=== PATIENT | male | born 1935 | race Caucasian/White ===

== ENCOUNTER 2017-04-03 17:18 | Inpatient (IN) | payer MEDICARE, BC, OTHER ==
[2017-04-03] MEDS ORDERED: Ziprasidone 20 MG VIAL ONE (18:11)
[2017-04-03] MEDS ORDERED: Sterile Water 10 ML ONE (18:13)
[2017-04-03 19:23] LABS: #Eosinphils 0.1 thou/uL (0.0-0.7); #Lymphocytes 2.3 thou/uL (1.20-3.40); #Monocytes 0.8 thou/uL (0.11-0.59); #Neutrophils 5.6 thou/uL (1.40-6.50); %Basophils 0.3 % (0.0-1.0); %Eosinophils 1.6 % (0.0-10.0); %Lymphocytes 25.7 % (21.0-51.0); %Monocytes 9.3 % (0.0-10.0); %Neutrophils 63.1 % (42.0-75.0); Hemoglobin 12.4 g/dL (14.0-18.0); Mean Corpuscular HGB CONC 32.7 g/dL (32.0-36.0); Mean Platelet Volume 7.3 fL (7.4-10.4); Platelet Count 162 thou/uL (130-400); RBC Distribution Width 13.2 % (11.5-14.5); Red Blood Cell (RBC) Count 3.99 mill/uL (4.70-6.10); White Blood Cell (WBC) Count 8.9 thou/uL (4.8-10.8)
[2017-04-03 19:36] LABS: ALT (SGPT) 20 U/L (8-55); AST (SGOT) 22 U/L (5-34); Albumin 3.9 g/dL (3.4-4.8); Alkaline Phosphatase 65 U/L (40-150); Anion Gap 15 mmol/L (10-20); BUN (Urea Nitrogen) 31 mg/dL (8.4-25.7); Bilirubin, Total 0.4 mg/dL (0.2-1.2); Calc. Creatinine Clearance 0 mL/min (70-130); Calcium 9.1 mg/dL (7.8-10.44); Carbon Dioxide 20 mmol/L (23-31); Chloride 111 mmol/L (98-107); Estimated GFR-MDRD 77; Globulin 2.6 g/dL (2.4-3.5); Glucose 113 mg/dL (83-110); Potassium 4.1 mmol/L (3.5-5.1); Protein, Total 6.5 g/dL (5.8-8.1); Sodium 142 mmol/L (136-145)
[2017-04-03 19:41] LABS: Alcohol Less than 10 mg/dL (Less than 10)
[2017-04-03 19:42] LABS: Acetaminophen Less than 6.0 mcg/mL (10.0-30.0); Salicylate Less than 8.0 mg/dL (15.0-30.0)
[2017-04-03 20:29] LABS: Bilirubin Negative (Negative); Blood, Urine Negative (Negative); Clarity CLOUDY (Clear); Glucose, Urine (Dipstick) Negative (Negative); Leukocyte Small (Negative); Nitrite Positive (Negative); Protein, Urine (Dipstick) Negative (Neg-Trace); Specific Gravity, Urine 1.024 (1.002-1.036)
[2017-04-03 20:33] LABS: Bacteria/HPF 4+ HPF (None Seen); Hyaline Casts/LPF 4-6 HYALINE CAST LPF (0-3 Hyaline); Pathc Cast-AUWi Flag 1.13 (0-2.49); RBC/HPF 0-3 HPF (0-3); Squamous Epithelial 0-3 HPF (0-3)
[2017-04-03 20:38] LABS: Amphetamine Not Detected (NotDetected); Barbiturates Screen Not Detected (NotDetected); Benzodiazepine Screen Not Detected (NotDetected); Cocaine Metabolite Screen Not Detected (NotDetected); Medtox Control Line Valid? VALID (VALID); Medtox Reader # READER 1; Methadone Not Detected (NotDetected); Methamphetamine Not Detected (NotDetected); Opiate Screen Not Detected (NotDetected); Oxycodone Screen Not Detected (NotDetected); Phencyclidine (PCP) Not Detected (NotDetected); THC/Cannabinoid Screen Not Detected (NotDetected); Tricyclic Screen Not Detected (NotDetected)
[2017-04-03 20:43] LABS: Yeast-AUWi Flag 267.8 (0-25.0)
--- NOTE | 2017-04-03 22:17 | CT ---
NONCONTRAST CT HEAD: Date: 04-03-17 History: Altered mental status. Comparison: 09-25-15 FINDINGS: Again noted are chronic small vessel ischemic changes and cerebral volume loss, not significantly pro gressed from the prior exam. There is no evidence of an acute cortical infarction, hemorrhage, mass e ffect or midline shift. Ventricular system is normal in size, shape, and position for the degree of s ulcal atrophy. There has been no interval change compared to the prior exam. IMPRESSION: No acute intracranial abnormality is demonstrated. POS: [facility]
[2017-04-03] MEDS ORDERED: Ondansetron ODT 4 MG TAB SL PRN (23:29)
[2017-04-03] MEDS ORDERED: Acetaminophen 325 MG TAB PO PRN (23:29)
[2017-04-03] MEDS ORDERED: Ondansetron HCl/PF 4 MG/2 ML Vial IVP PRN (23:29)
[2017-04-03] MEDS ORDERED: Lorazepam 2 MG/ML VIAL SLOW IVP PRN (23:30)
[2017-04-04] MEDS ORDERED: Ziprasidone 20 MG VIAL IM PRN (06:03)
[2017-04-04] MEDS ORDERED: Sterile Water 10 ML VIAL FS PRN (06:04)
[2017-04-04 09:50] VITALS: BMI 24.0
[2017-04-04] MEDS ORDERED: Acetaminophen 650 MG Suppository PR PRN (11:49)
[2017-04-04] MEDS ORDERED: Acetaminophen 325 MG TAB PO PRN (11:49)
[2017-04-04] MEDS ORDERED: Ondansetron HCl/PF 4 MG/2 ML Vial IVP PRN (11:49)
[2017-04-04] MEDS ORDERED: Lorazepam 0.5 MG TAB PO PRN (11:49)
[2017-04-04] MEDS ORDERED: Guaifenesin DM 100-10/5 ML UDCUP PO PRN (11:49)
[2017-04-04] MEDS: Dextrose 5% in Water 1,000 ML IV SCH ×2 (12:00→13:24)
[2017-04-04 12:54] LABS: #Basophils 0.1 thou/uL (0.0-0.2); #Eosinphils 0.1 thou/uL (0.0-0.7); #Monocytes 0.3 thou/uL (0.11-0.59); #Neutrophils 3.3 thou/uL (1.40-6.50); %Basophils 1.4 % (0.0-1.0); %Eosinophils 2.4 % (0.0-10.0); %Lymphocytes 34.3 % (21.0-51.0); %Monocytes 5.5 % (0.0-10.0); %Neutrophils 56.4 % (42.0-75.0); Hemoglobin 12.3 g/dL (14.0-18.0); Mean Corpuscular HGB CONC 33.5 g/dL (32.0-36.0); Mean Corpuscular Hemoglobin 31.6 pg (27.0-31.0); Mean Corpuscular Volume 94.5 fl (80.0-94.0); Mean Platelet Volume 7.1 fL (7.4-10.4); Platelet Count 186 thou/uL (130-400); RBC Distribution Width 12.8 % (11.5-14.5); White Blood Cell (WBC) Count 5.9 thou/uL (4.8-10.8)
[2017-04-04 13:17] LABS: Anion Gap 13 mmol/L (10-20); BUN (Urea Nitrogen) 19 mg/dL (8.4-25.7); Calc. Creatinine Clearance 72 mL/min (70-130); Calcium 8.8 mg/dL (7.8-10.44); Carbon Dioxide 24 mmol/L (23-31); Chloride 109 mmol/L (98-107); Estimated GFR-MDRD Greater than 90; Glucose 111 mg/dL (83-110); Potassium 3.5 mmol/L (3.5-5.1); Sodium 142 mmol/L (136-145)
[2017-04-04] MEDS: Carbidopa/Levodopa CR 50-200 mg Tablet PO SCH ×3 (13:26→20:46)
--- NOTE | 2017-04-04 17:23 | HP ---
REASON FOR ADMISSION: Acute encephalopathy, urinary tract infection, dehydration. HISTORY OF PRESENTING ILLNESS: Please note the majority of this history is obtained by talking to patient's eldest daughter here at bedside, prior records , ER records, and [facility] records as the patient has fairly advanced dementia and is not oriented at present. He was sent from [facility] as he was agitated and hitting staff members there. The daughter states that he has been confused from last 10 days and this has been gradually worsening. He has been refusing his medications from the last 2-3 days, not eating well and was easily getting agitated. He has also had loss of appetite and was dehydrated. Mr. Jasmine was initially at [facility]. From there, he was transferred to [facility] for increased agitation for better skilled care, I believe. He also has psychiatrist appointment which is scheduled for at [facility]. His primary care physician, Dr. Vega has been lowering the dose of Sinemet and gradually increasing the dose of antipsychotic medications to help with his agitation. The patient sees neurologist for his Parkinson's at [facility]. The daughter also mentions that patient was under hospice care at [facility] prior to getting moved to [facility]. PAST MEDICAL AND SURGICAL HISTORY: History of dementia, history of Parkinson's disease, hypertension, anxiety disorder, hypothyroidism, pacemaker, glaucoma, and cataract surgeries. CURRENT MEDICATIONS: Norvasc 5 mg daily, aspirin 325 mg daily, Combigan eyedrops, buspirone 30 mg 3 times daily, Sinemet 25/100 mg extended release tablet 1 tab 4 times daily, Colace 100 mg twice daily, ferrous sulfate 325 mg daily, Xalatan eyedrops at bedtime, levothyroxine 75 mcg p.o. daily, lisinopril 10 mg p.o. daily, Ativan 0.5 mg p.o. q.8 hourly p.r.n., Pravachol 20 mg p.o. at bedtime, Seroquel 300 mg p.o. at bedtime, Exelon patch 9.5 mg topical daily, Flomax 0.4 mg p.o. daily, this is extended release tablet daily, Effexor extended release 75 mg p.o. daily. All these meds need to be reconfirmed from [facility], I have instructed staff for the same. ALLERGIES: PENICILLIN. PERSONAL HISTORY: Does not abuse alcohol or drugs. No history of smoking. FAMILY HISTORY: The patient is adopted and biological mom at the age of 90 years and she has had history of [place]. He does not know much about his biological father. The patient himself has 7 children. CODE STATUS: DNR. This was confirmed with the daughter who is here at bedside. REVIEW OF SYSTEMS: Cannot be obtained as patient is not oriented at present. PHYSICAL EXAMINATION: GENERAL: Patient is an 81-year-old male who is currently not in any acute distress. VITAL SIGNS: Blood pressure 152/84, pulse 60 per minute, respiratory rate 18 per minute, temperature 97.2 degrees Fahrenheit, saturating 100% on 2 liters nasal cannula. ORAL CAVITY: Mucous membranes are dry. No exudates or congestion. CARDIOVASCULAR SYSTEM: S1, S2 heard. Regular rhythm. RESPIRATORY SYSTEM: Air entry 1+ bilateral. No rales or rhonchi. ABDOMEN: Soft, bowel sounds heard. No tenderness, rigidity or guarding. EXTREMITIES: No peripheral edema or calf tenderness. VASCULAR SYSTEM: Peripheral pulses 1+ bilateral. No ischemic ulcerations or gangrene. CENTRAL NERVOUS SYSTEM: No gross focal deficits seen. He was seen moving all 4 extremities. Follows simple verbal stimuli, but his attention span is very short. PSYCHIATRIC SYSTEM: Cannot be assessed at present due to patient's current cognitive status. LABORATORY DATA AND X-RAY FINDINGS: Hemoglobin and hematocrit 12 and 36, platelet count is 186, white count of 5.9, MCV is 94. Electrolytes; sodium 142 , serum bicarbonate 24, BUN 19, creatinine 0.8, glucose 111, albumin 3.9. TSH 2.90. Liver enzymes are within normal limits. Urine drug screen is negative. UA is positive for nitrite, small leukocyte esterase, 11-20 wbc's and 4+ bacteria. CT brain done showed no acute intracranial abnormalities. CLINICAL IMPRESSION AND PLAN: The patient will be admitted to medical floor for acute encephalopathy, dehydration, urinary tract infection, and dementia with behavioral disturbances. He will be gently hydrated with D5 normal saline at 80 mL per hour. We will also place him empirically on Levaquin. Blood and urine cultures will be obtained. We will [facility] are being titrated with lowering his Sinemet and increasing his psychotropic medications. We will follow the current dose of Sinemet and switch his Seroquel to 100 mg twice daily. We will continue his Effexor extended release at 75 mg daily, Ativan p.r.n. for severe agitation, BuSpar will be reduced to 10 mg twice daily. We will also continue his aspirin , Norvasc, eyedrops and Flomax as before. I have discussed code status with patient and daughter at bedside and they would want him to be DNR. I have given complete updates to patient's daughter at bedside. We will also obtain a chest x-ray to rule out any infiltrates as well. The daughter also mentions that she would like to place him back on hospice and Palliative Care consultation will be requested for the same as well. [facility]
--- NOTE | 2017-04-04 19:01 | RAD ---
PORTABLE AP CHEST X-RAY 04/04/17 HISTORY: Infiltrate. COMPARISON: 09/25/15. FINDINGS: Dual lead left subclavian cardiac pacemaking device remains in place. Patient is rotated. There is pe rsistent elevation of right hemidiaphragm with volume loss at the right lung base. There is blunting of the right lateral costophrenic angle which is probably related to elevation of the right hemidiaph ragm and associated volume loss. However, a small right pleural effusion cannot be entirely excluded. The cardiac silhouette and pulmonary vasculature are within normal limits and the lungs otherwise cl ear. Thoracic aorta is ectatic. Degenerative changes again present in the spine. Chest is stable from prior exam. IMPRESSION: 1. Stable chest without evidence of an acute cardiopulmonary process. 2. Persistent elevation right hemidiaphragm with suggested blunting of the right lateral costoph renic angle, but this may be related to volume loss and elevation of the right hemidiaphragm. POS: [facility]
[2017-04-04] MEDS: busPIRone HCl 10 MG TAB PO SCH (20:41)
[2017-04-04] MEDS: Famotidine 20 MG TAB PO SCH (20:45)
[2017-04-04] MEDS: Docusate 100 MG CAP PO SCH (20:46)
[2017-04-04] MEDS ORDERED: Latanoprost 0.005% Ophth Soln 2.5 ml Bottle EA EYE SCH (21:00)
[2017-04-05] MEDS: Dextrose 5% in Water 1,000 ML IV SCH ×3 (02:42→12:20)
[2017-04-05 04:47] LABS: #Basophils 0.1 thou/uL (0.0-0.2); #Eosinphils 0.2 thou/uL (0.0-0.7); #Lymphocytes 2.7 thou/uL (1.20-3.40); #Monocytes 0.6 thou/uL (0.11-0.59); #Neutrophils 3.6 thou/uL (1.40-6.50); %Basophils 0.8 % (0.0-1.0); %Eosinophils 2.7 % (0.0-10.0); %Lymphocytes 37.9 % (21.0-51.0); %Monocytes 7.9 % (0.0-10.0); %Neutrophils 50.7 % (42.0-75.0); Hemoglobin 12.9 g/dL (14.0-18.0); Mean Corpuscular HGB CONC 33.2 g/dL (32.0-36.0); Mean Corpuscular Hemoglobin 31.3 pg (27.0-31.0); Mean Corpuscular Volume 94.3 fl (80.0-94.0); Mean Platelet Volume 7.4 fL (7.4-10.4); Platelet Count 178 thou/uL (130-400); RBC Distribution Width 12.7 % (11.5-14.5); Red Blood Cell (RBC) Count 4.12 mill/uL (4.70-6.10)
[2017-04-05 05:08] LABS: Anion Gap 12 mmol/L (10-20); BUN (Urea Nitrogen) 16 mg/dL (8.4-25.7); Calc. Creatinine Clearance 68 mL/min (70-130); Calcium 9.1 mg/dL (7.8-10.44); Carbon Dioxide 25 mmol/L (23-31); Chloride 110 mmol/L (98-107); Estimated GFR-MDRD 86; Glucose 98 mg/dL (83-110); Potassium 3.3 mmol/L (3.5-5.1); Sodium 144 mmol/L (136-145)
[2017-04-05] MEDS ORDERED: Levothyroxine Sodium 75 MCG TAB PO SCH (06:00)
[2017-04-05 08:33] VITALS: BP 152/92; TEMP 98
[2017-04-05] MEDS ORDERED: Amlodipine 10 MG TAB PO SCH (09:00)
[2017-04-05] MEDS ORDERED: Venlafaxine HCl XR 75 MG CAP PO SCH (09:00)
[2017-04-05] MEDS ORDERED: BRIMONIDINE TARTRATE FS SCH (09:00)
[2017-04-05] MEDS ORDERED: Enoxaparin Sodium 40 MG/0.4 ML SYRINGE SC SCH (09:00)
[2017-04-05] MEDS ORDERED: Tamsulosin HCl 0.4 MG CAP PO SCH (09:00)
[2017-04-05] MEDS ORDERED: TIMOLOL FS SCH (09:00)
[2017-04-05] MEDS ORDERED: Aspirin 325 mg Enteric Coated Tablet PO SCH (09:00)
[2017-04-05] MEDS: Docusate 100 MG CAP PO SCH (12:19)
[2017-04-05] MEDS: Famotidine 20 MG TAB PO SCH (12:19)
[2017-04-05] MEDS: Carbidopa/Levodopa CR 50-200 mg Tablet PO SCH (12:19)
[2017-04-05] MEDS: busPIRone HCl 10 MG TAB PO SCH (12:19)
--- NOTE | 2017-04-05 21:43 | DIS ---
DATE OF ADMISSION: 04/04/2017 DATE OF DISCHARGE: 04/05/2017 DISCHARGE DIAGNOSES: 1. Acute metabolic encephalopathy. 2. Advanced dementia. 3. Question of urinary tract infection. 4. Dehydration, resolved. 5. Advanced Parkinson's. 6. Hypertension. 7. Anxiety disorder. 8. Hypothyroidism. 9. Hypokalemia, mild. CONSULTATIONS: None. PERTINENT LABORATORY AND X-RAY FINDINGS: Potassium ranged between 3.3 to 4.1, creatinine ranged betw een 0.80 to 0.94 with estimated GFR ranging between 77 greater than 90. LFTs within normal limits. TSH 2.91. CBC showed hemoglobin ranged between 12.3 to 12.9. Urine drug screen dated 04/03/2017, roberto staples. Blood cultures x2 from 04/04/2017, showed no growth to date. CT of the brain without contra st dated 04/03/2017, showed no acute intracranial process. Portable chest x-ray dated 04/04/2017 keila wed elevation of the right hemidiaphragm. No acute cardiopulmonary process identified. HOSPITAL COURSE: Patient was admitted to the medical floor after presenting with agitation, combativ eness, and encephalopathy. The patient underwent extensive evaluation including neuro imaging and me tabolic screening with concern for underlying infectious process from urinary source. The patient wa s treated with IV Levaquin for suspected urinary tract infection; however, urine culture was unavaila ble and no specific organism was identified. The patient was also noted with dehydration and treated with IV fluids and encourage increased oral intake of free water. The patient was also treated for agitation and combativeness with adjustments to Geodon and Seroquel during the hospital course. Melanie ent overall clinically stabilized with medical management and general supportive measures including f luid resuscitation. The family decided to pursue palliative measures and hospice care, at which poin t, the patient has been approved for transfer to inpatient hospice of [facility] [place] on discharge. Ov ree, the patient clinically stabilized and ready for discharge to inpatient hospice on 04/05/2017. DISCHARGE MEDICATIONS: 1. Acetaminophen 500 mg 1 tab p.o. q.4-6 hours p.r.n. 2. Amlodipine 5 mg one tablet p.o. daily. 3. Enteric coated aspirin 325 mg 1 tab p.o. daily. 4. Combigan 0.2%/0.5% eyedrops 10 mL bilateral eyes daily. 5. BuSpar 10 mg p.o. b.i.d. 6. Sinemet-CR 25/100 mg 1 tab p.o. q.i.d. 7. Colace 100 mg p.o. b.i.d. 8. Feosol 325 mg p.o. daily. 9. Xalatan 0.005% ophthalmic solution 1 drop to each eye at bedtime. 10. Levothyroxine 75 mcg 1 tab p.o. daily. 11. Lisinopril 10 mg 1 tab p.o. daily. 12. Ativan 0.5 mg p.o. q.8 hours p.r.n. 13. Oxistat 1% cream one application topically daily. 14. Seroquel 100 mg p.o. b.i.d. 15. Exelon patch 9.5 mg topically daily. 16. Tamsulosin 0.4 mg p.o. daily. 17. Effexor XR 75 mg p.o. daily. FOLLOWUP: Patient will be followed at [facility]. The patient may follow up with his primary care provider, Dr. Vega. CONDITION ON DISCHARGE: Guarded. ACTIVITY: Ad olga. DIET: Regular. CODE STATUS: Do not resuscitate. DISPOSITION: Discharged to [facility] on 04/05/2017.
== END 2017-04-05 17:30 | disposition hospice, inpatient (51) | DRG 56 ==
LOC: ERS 17:18 → T4-B 23:24 → OBSVTOIN 04-04 11:49
PROVIDERS: ADMIT Family Medicine; ATTEND Family Medicine
DX: G20 Parkinson's disease (principal); G93.41 Metabolic encephalopathy; F02.81 Dementia in other diseases classified elsewhere, unspecified severity, with behavioral disturbance; E86.0 Dehydration; N39.0 Urinary tract infection, site not specified; I10 Essential (primary) hypertension; F41.9 Anxiety disorder, unspecified; E87.6 Hypokalemia; Z51.5 Encounter for palliative care; Z66 Do not resuscitate; R63.0 Anorexia; Z95.0 Presence of cardiac pacemaker; H40.9 Unspecified glaucoma
CPT/HCPCS: 36415; 70450; 71045; 80048; 80053; 80306; 80307; 81003; 81015; 84443; 85025; 87040; 93005; 96372; 96374; A4216; J0696; J1650; J1956; J3486

== ENCOUNTER 2017-08-18 17:45 | Emergency (ER) | payer MEDICARE, BC, OTHER ==
[2017-08-18] MEDS ORDERED: Bacitracin Zinc 1 Packet ONE (17:58)
--- NOTE | 2017-08-18 18:33 | RAD ---
AP PELVIS: 08/18/17 HISTORY: Fall with injury to both hips. Trauma. FINDINGS/IMPRESSION: Degenerative changes at both hips. Pelvis appears intact with no acute fracture identified. POS: [facility]
--- NOTE | 2017-08-18 18:34 | RAD ---
LEFT HIP: 08/18/17 Two views. HISTORY: Fall with injury and pain to hip. There are moderate degenerative changes of the hip. Joint narrowing and hypertrophic change noted at the hip joint. No acute fracture identified. IMPRESSION: No acute fracture. Moderate degenerative changes. POS: [facility]
[2017-08-18] MEDS ORDERED: Adacel (T-DAP) 0.5 ML VIAL ONE (18:35)
--- NOTE | 2017-08-18 18:35 | RAD ---
RIGHT HIP: 08/18/17 Two views. HISTORY: Injury to right hip from fall with pain, trauma. There are moderate degenerative changes of the right hip. Joint narrowing. Spurring from the femoral head. No acute fracture identified. IMPRESSION: Moderate degenerative changes of the right hip. POS: [facility]
--- NOTE | 2017-08-18 18:38 | RAD ---
RIGHT ELBOW: 08/18/17 Four views. HISTORY: Trauma with injury to right elbow with elbow pain. Mild degenerative changes at the elbow. No evidence of acute fracture identified. No evidence of join t effusion. IMPRESSION: No acute fracture identified. POS: [facility]
--- NOTE | 2017-08-18 18:42 | CT ---
CT HEAD WITHOUT CONTRAST: 08/18/17 Multiple axial tomograms obtained through the head without IV enhancement. INDICATIONS: Trauma. Fall at [facility] with injury to head. Comparison made to CT head dated 04/03/17. Cortical volume loss is again noted. Ventricles are mildly prominent but stable. Chronic ischemic whi te matter changes appear stable. No intracranial hemorrhage. No mass, edema, or acute infarct identif ied. IMPRESSION: There are chronic changes which appear stable. No acute process. POS: [facility]
== END 2017-08-18 20:05 ==
LOC: ERS 17:45
DX: S09.90XA Unspecified injury of head, initial encounter (principal); S51.012A Laceration without foreign body of left elbow, initial encounter; S70.00XA Contusion of unspecified hip, initial encounter; F03.90 Unspecified dementia, unspecified severity, without behavioral disturbance, psychotic disturbance, mood disturbance, and anxiety; E11.39 Type 2 diabetes mellitus with other diabetic ophthalmic complication; H40.9 Unspecified glaucoma; F41.9 Anxiety disorder, unspecified; F32.9 Major depressive disorder, single episode, unspecified; I10 Essential (primary) hypertension; G20 Parkinson's disease; E78.5 Hyperlipidemia, unspecified; M19.90 Unspecified osteoarthritis, unspecified site; Z79.899 Other long term (current) drug therapy; Z79.891 Long term (current) use of opiate analgesic; W17.89XA Other fall from one level to another, initial encounter
CPT/HCPCS: 70450; 72170; 90471; 90715